=== PATIENT | female | born 1980 | race Caucasian/White ===

== ENCOUNTER 2018-06-24 17:10 | Emergency (ER) | payer SELFPAY ==
[~2018-06-24] VITALS: Ht 162.6 cm; Wt 89.4 kg
[~2018-06-24 17:10] MED LIST: AC500T; AGM875T PO; CEPH250T; CEPH500C; CYCL10TA9 PO; FLT05NA16 NSEACH; GBPN100C PO; HYDR-757 PO; NAPR-243 PO; OMEP20CA6; PRD20T PO; PREN1TAB39; PSEU120T53; SUMA50TA2 PO
--- OUTSIDE RECORDS SUMMARY | 2018-06-24 17:16 | XMS REPORT | Continuity of Care Document ---
Author Author [facility] Organization [facility] Address Unknown Phone Unavailable Care Team Providers Care Power Grader Operator Name Role Phone HERNAN LIZAMA MD PP Insurance Providers Payer Name Policy Number Subscriber Name Relationship [facility] [place] [id number] Cassia Goodman 01 Self / Same As Patient Advance Directives Directive Response Recorded Date Advance Directives N 08/12/13 2:20pm Health Care Power of Couturiere N 08/12/13 2:20pm Organ Donor N 08/12/13 2:20pm Problems No Known Problems or Medical conditions. Family History History Response Recorded Date/Time Hx Family Cancer N 07/02/09 8:50pm Hx Family Cardiac Disorders Y 07/02/09 8: 50pm Hx Family Hypertension Y 07/02/09 8:50pm Social History History Response Recorded Date/Time Alcohol Use Denies Use 08/12/13 2:20pm Recreational Drug Use N 08/12/13 2:20pm Allergies, Adverse Reactions, Alerts Allergen Type Severity Reaction Last Updated No Known Drug Allergies 05/12/09 Medications Medication Dose Units Route Sig Qty Days Prednisone 40 Mg PO DAILY 5 Gabapentin (Neurontin) 100 Mg PO BID Cyclobenzaprine HCl (Cyclobenzaprine Hcl) 1 Each PO BID Naproxen (Naprosyn) 1 Each PO BID Hydrocodone Bit/Acetaminophen (Mathews 5-325 Tablet) 1 Each PO Sumatriptan Succinate 50 Mg PO Q4H 3 Response Recorded Date/Time Status not known Unknown Results No Known Relevant Diagnostic Tests, Laboratory Data and/or Discharge Summary. Procedures Procedure Code Date LOW CERVICAL 74.1 07/02/09 INSTRUMENT DELIVERY NOS 72.9 07/02/09 Encounters Encounter Location Date/Time Departed Emergency Room [facility] 1:54pm Discharged Inpatient [facility] 12: 00am
--- OUTSIDE RECORDS SUMMARY | 2018-06-24 17:16 | XMS REPORT ---
Author Author KRISTA PERALTA Organization [facility] [place] Address [address] [place] [address] Care Team Providers Care Geographic Information Systems Manager Name Role Phone KRISTA PERALTA Unavailable PROBLEMS Type Condition ICD9-CM Code HGZ99-QT Code Onset Dates Condition Status SNOMED Code Problem Moderate episode of recurrent major depressive disorder F33.1 Active [id number] ALLERGIES Substance Reaction Event Type Date Status Viibryd 10 Mg Tablet increased anxiety Non Drug Allergy Dec, Active ENCOUNTERS Encounter Location Date Diagnosis [facility] [place] [id number] [place] [address]89- 7632 Dec, [facility] [place] [address] [address] Dec, Acute nasopharyngitis J00 and Moderate episode of recurrent major depressive disorder F33.1 [facility] [place] [id number] [place] [address]26- 6498 Jun, [facility] [place] [id number] [place] [address] 35226- 8104 May, [facility] [place] [id number] [place] [address] 14029- 1585 May, [facility] [place] [id number] [place] [address] 35656- 0767 Apr, [facility] [place] [id number] [place] [address]- 0945 Apr, [facility] [place] [id number] [place] [address] 6[address]- 9107 Apr, [facility] [id number] [place] [id number] Apr, Dental examination V72.2 [facility] [address] [id number] [place] [address] 7607 Mar, [facility] [address] [id number] [place] [id number] Mar, Dental examination V72.2 [facility] [address] [id number] [place] [address] 978[address] Mar, [facility] [address] [id number] [place] [address]- 4838 Mar, [facility] [address] [id number] [place] [address]- 5674 Mar, High risk medication use V58.69 [facility] [address] [id number] [place] [address]- 6211 February, [facility] [address] [id number] [address] February, [facility] [address] [id number] [address] Jan, [facility] [address] [id number] [place] [address]- 6009 Jan, [facility] [address] [id number] [place] [address]- 1745 Dec, [facility] [address] [id number] [address] 7462 Dec, [facility] [address] [id number] [address]- 3967 Dec, [facility] [address] [id number] [place] [address]- 9606 Dec, [facility] [address] [id number] [place] [address]- 5651 Nov, [facility] [address] [id number] [place] [address]- 3569 Nov, [facility] [place] [facility] [address] [id number] [place] [address]- 9168 Nov, 2014 [facility] [place] [facility] [address] [id number] [place] [address]- 2333 Nov, 2014 [facility] [place] [facility] [address] [id number] [place] [address]- 1696 Nov, 2014 [facility] [place] [facility] [address] [id number] [place] [address]- 1255 Nov, 2014 [facility] [place] [facility] [address] [id number] [place] [address]- 0392 Nov, 2014 [facility] [place] [facility] [address] [id number] [place] [address]- 4362 Nov, 2014 [facility] [place] [facility] [address] [id number] [place] [address]- 6283 Nov, 2014 [facility] [place] [facility] [address] [id number] [place] [address]- 8490 Nov, [facility] [place] [facility] [address] [id number] [place] [address]- 7039 Oct, [facility] [place] [facility] [address] [id number] [place] [address]- 7456 Oct, [facility] [place] [facility] [address] [id number] [place] [address]- 1830 Oct, [facility] [place] [facility] [address] [id number] [place] [address]- 1460 Oct, [facility] [place] [facility] [address] [id number] [place] [address]- 8122 Sep, [facility] [place] [facility] [address] [id number] [place] [address]- 2700 Sep, [facility] [place] [facility] [address] [id number] [id number] [address] Sep, [facility] [place] [facility] [address] [id number] [address]- 4172 Sep, [facility] [place] [facility] [address] [id number] [place] [address]- 7515 Sep, [facility] [place] [facility] [address] [id number] [place] 9470 Sep, [facility] [place] [facility] [address] [id number] [place] [address]- 6241 Sep, [facility] [place] [facility] [address] [id number] [place] [address]- 9963 Sep, [facility] [place] [facility] [address] [id number] [place] [address]- 8256 Aug, [facility] [place] [facility] [address] [id number] [place] [address]- 1928 Aug, [facility] [place] [facility] [address] [id number] [place] [address]- 9320 Aug, [facility] [place] [facility] [address] [id number] [place] [address]- 2611 Aug, [facility] [place] [facility] [address] [id number] [place] [address]- 6191 Aug, [facility] [place] [facility] [address] [id number] [place] [address]- 2649 Aug, [facility] [place] [facility] [address] [id number] [address]- 6999 Jul, [facility] [place] [facility] [address] [id number] [address]- 6576 Jul, [facility] [place] [facility] [address] [id number] [address]- 4845 Jul, [facility] [place] [facility] [address] [id number] [place] [address]- 4762 Jul, [facility] [place] [facility] [address] [id number] [place] [address]- 2134 Jul, [facility] [place] [facility] [address] [id number] [place] [address]- 9936 Jul, [facility] [place] [facility] [address] [id number] [place] [address]- 7793 Jul, [facility] [place] [facility] [address] [id number] [place] [address]- 0476 Jul, [facility] [place] [facility] [address] [id number] [place] [address]- 2686 Jun, [facility] [place] [facility] [address] [id number] [place] [address]- 9602 Jun, 2013 [facility] [place] [facility] [address] [id number] [place] [address]- 5368 Jun, [facility] [place] [facility] [address] [id number] [place] [address]- 7530 Jun, [facility] [place] [facility] [address] [id number] [place] [address]- 9846 Jun, [facility] [place] [facility] [address] [id number] [place] [address]- 9582 Jun, [facility] [place] [facility] [address] [id number] [place] [address]- 3865 May, [facility] [place] [facility] [address] [id number] [place] [address]- 9821 May, [facility] [place] [facility] [address] [id number] [place] [address]- 0864 May, [facility] [place] [facility] [address] [id number] [place] [address]- 5072 May, [facility] [place] [facility] [address] [id number] [place] [address]- 8474 Apr, [facility] [place] [facility] [address] [id number] [place] [address]- 7011 Apr, [facility] [place] [facility] [address] [id number] [place] [address]- 1677 Apr, [facility] [place] [facility] [address] [id number] [place] [address]- 6266 Apr, [facility] [place] [facility] [address] [id number] [place] [address]- 4574 Apr, [facility] [place] [facility] [address] [id number] [place] [address]- 0723 Mar, [facility] [place] [facility] [address] [id number] [place] [address]- 5964 Mar, [facility] [place] [facility] [address] [id number] [place] [address]- 9485 Mar, [facility] [place] [facility] [address] [id number] [place] [address]- 9683 Mar, [facility] [place] [facility] [address] [id number] [place] [address]- 4395 Mar, [facility] [place] [facility] [address] [id number] [place] [address]- 1123 Mar, [facility] [place] [facility] [address] [id number] [place] [address]- 0397 Mar, [facility] [place] [facility] [address] [id number] [place] [address]- 5177 Mar, [facility] [place] [facility] [address] [id number] [place] [address]- 6767 February, [facility] [place] [facility] [address] [id number] [place] [address]- 2204 February, [facility] [place] [facility] [address] [id number] [place] [address]- 7191 February, [facility] [place] [facility] [address] [id number] [place] [address]- 4689 February, [facility] [place] [facility] [address] [id number] [place] [address]- 8624 February, [facility] [place] [facility] [address] [id number] [place] [address]- 5163 February, [facility] [place] [facility] [address] [id number] [place] [address]- 8668 February, [facility] [place] [facility] [address] [id number] [place] [address]- 6073 Jan, [facility] [place] [facility] [address] [id number] [place] [address]- 3414 Jan, [facility] [place] [facility] [address] [id number] [place] [address]- 7325 Jan, [facility] [place] [facility] [address] [id number] [place] [address]- 6259 Jan, [facility] [place] [facility] [address] [id number] [place] [address]- 2407 Jan, [facility] [place] [facility] [address] [id number] [place] [address]- 2143 Jan, [facility] [place] [facility] [address] [id number] [place] [address]- 8126 Dec, [facility] [place] [facility] [address] [id number] [place] [address]- 2380 Dec, [facility] [place] [facility] [address] [id number] [place] [address]- 4156 Dec, [facility] [place] [facility] [address] [id number] [place] [address]- 0818 Dec, [facility] [place] [facility] [address] [id number] [place] [address]- 8757 Dec, [facility] [place] [facility] [address] [id number] [place] [address]- 1257 Dec, [facility] [place] [facility] [address] [id number] [place] [address]- 3695 Dec, [facility] [place] [facility] [address] [id number] [place] [address]- 0644 Dec, [facility] [place] [facility] [address] [id number] [place] [address]- 0230 Dec, [facility] [place] [facility] [address] [id number] [place] [address]- 5736 Dec, [facility] [place] [facility] [address] [id number] [place] [address]- 8556 Dec, [facility] [place] [facility] [address] [id number] [place] [address]- 5361 Dec, [facility] [place] [facility] [address] [id number] [place] [address]- 2570 Dec, [facility] [place] [facility] [address] [id number] [place] [address]- 8627 Dec, [facility] [place] [facility] [address] [id number] [place] [address]- 0133 Dec, [facility] [place] [facility] [address] [id number] [place] [address]- 8247 Dec, [facility] [place] [facility] [address] [id number] [place] [address]- 2655 Nov, [facility] [place] [facility] [address] [id number] [place] [address]- 1148 Nov, [facility] [place] [facility] [address] [id number] [place] [address]- 5317 Nov, [facility] [place] [facility] [address] [id number] [place] [address]- 6352 Nov, [facility] [place] [facility] [address] [id number] [place] [address]- 7359 Nov, [facility] [place] [facility] [address] [id number] [place] [address]- 7409 Nov, [facility] [place] [facility] [address] [id number] [place] [address]- 2614 Nov, [facility] [place] [facility] [address] [id number] [place] [address]- 9901 Nov, [facility] [address] [id number] [place] [address]- 5350 Nov, [facility] [place] [facility] [address] [id number] [place] [address]- 8882 Nov, [facility] [address] [id number] [place] [address]- 8953 Sep, [facility] [place] [facility] [address] [id number] [place] [address]- 4749 Sep, [facility] [place] [facility] [address] [id number] [place] [address]- 3222 Aug, [facility] [place] [facility] [address] [id number] [place] [address]- 7568 Aug, [facility] [address] [id number] [place] [address]- 7121 Aug, [facility] [place] [facility] [address] [id number] [place] [address]- 8337 Aug, [facility] [place] [facility] [address] [id number] [place] [address]- 5437 Aug, [facility] [place] [facility] [address] [id number] [place] [address]- 0805 Aug, [facility] [place] [facility] [address] [id number] [place] [address]- 2144 Aug, [facility] [place] [facility] [address] [id number] [address]- 8760 Aug, [facility] [place] [facility] [address] [id number] [place] [address]- 1015 Aug, [facility] [place] [facility] [address] [id number] [address]- 4370 Aug, [facility] [place] [facility] [address] [id number] [address]- 3725 Jul, [facility] [place] [facility] [address] [id number] [place] [address]- 0968 Jul, [facility] [place] [facility] [address] [id number] [place] [address]- 9768 Jul, [facility] [place] [facility] [address] [id number] [place] [address]- 1349 Jul, [facility] [place] [facility] [address] [id number] [place] [address]- 1255 Jun, [facility] [place] [facility] [address] [id number] [place] [address]- 8766 Jun, [facility] [place] [facility] [address] [id number] [place] [address]- 5316 May, [facility] [place] [facility] [address] [id number] [place] [address]- 9880 May, [facility] [place] [facility] [address] [id number] [place] [address]- 1081 May, [facility] [place] [facility] [address] [id number] [place] [address]- 6764 May, [facility] [place] [facility] [address] [id number] [place] [address]- 6935 Apr, [facility] [place] [facility] [address] [id number] [place] [address]- 5542 Apr, [facility] [place] [facility] [address] [id number] [place] [address]- 3253 Apr, [facility] [place] [facility] [address] [id number] [place] [address]- 4308 Apr, [facility] [place] [facility] [address] [id number] [place] [address]- 2519 Mar, [facility] [place] [facility] [address] [id number] [place] [address]- 8471 Mar, [facility] [place] [facility] [address] [id number] [place] [address]- 9189 Mar, [facility] [address] [id number] [place] [address]- 8306 February, [facility] [address] [id number] [place] [address]- 7836 February, [facility] [address] [id number] [place] [address]- 2816 February, [facility] [address] [id number] [place] [address]- 2216 February, [facility] [address] [id number] [place] [address]- 1929 Jan, [facility] [address] [id number] [place] [address]- 9736 Jan, [facility] [address] [id number] [place] [address]- 1868 Dec, [facility] [address] [id number] [place] [address]- 1833 Dec, [facility] [address] [id number] [place] [address]- 6955 Nov, [facility] [address] [id number] [place] [address]- 3420 Oct, [facility] [address] [id number] [place] [address]- 8993 Oct, [facility] [place] [facility] [address] [id number] [place] [address]- 9500 Oct, [facility] [place] [facility] [address] [id number] [place] [address]- 6040 Sep, [facility] [place] [facility] [address] [id number] [place] [address]- 8641 Sep, [facility] [place] [facility] [address] [id number] [place] [address]- 6847 Sep, [facility] [place] [facility] [address] [id number] [place] [address]- 0483 14 Sep, 2012 [facility] [place] [facility] [address] [id number] [place] [address]- 5684 13 Sep, 2012 [facility] [place] [facility] [address] [id number] [place] [address]- 7156 13 Sep, 2012 [facility] [place] [facility] [address] [id number] [place] [address]- 6396 06 Sep, 2012 [facility] [place] [facility] [address] [id number] [place] [address]- 6838 06 Sep, 2012 [facility] [place] [facility] [address] [id number] [place] [address]- 9722 Sep, [facility] [place] [facility] [address] [id number] [place] [address] Sep, [facility] [place] [facility] [address] [id number] [place] [address] Aug, [facility] [place] [facility] [address] [id number] [place] [address] Aug, [facility] [place] [facility] [address] [id number] [place] [address] Aug, [facility] [place] [facility] [address] [id number] [place] [address] Aug, [facility] [place] [facility] [address] [id number] [place] [address] 15 Jul, 2012 [facility] [place] [facility] [address] [id number] [place] [address] 15 Jul, 2012 [facility] [place] [facility] [address] [id number] [place] [address] Jul, [facility] [place] [facility] [address] [id number] [place] [address] Jul, [facility] [place] [facility] [address] [id number] [place] [address] Jul, [facility] [place] [address] [id number] [place] [address] Jun, [facility] [place] [address] [id number] [address] Jun, [facility] [place] [address] [id number] [address] May, IMMUNIZATIONS No Known Immunizations SOCIAL HISTORY Never Assessed REASON FOR VISIT Congestion- Cough started couple days ago- pt just got out of [facility] states she is 8 days clean, would like to get set up with our drug and alcohol treatment here - Mahesh Herbert RN, PHQ2, AUDIT C PLAN OF CARE Activity Details Follow Up 4 Weeks Reason: VITAL SIGNS Height 66 in 2017-12-27 Weight 239 lbs 2017-12-27 Temperature 98.9 degrees Fahrenheit 2017-12-27 Heart Rate 88 bpm 2017-12-27 Respiratory Rate 18 2017-12-27 BMI 38.57 kg/m2 2017-12-27 Blood pressure systolic 148 mmHg 2017-12-27 Blood pressure diastolic 78 mmHg 2017-12-27 MEDICATIONS Medication Instructions Dosage Frequency Start Date End Date Duration Status Zoloft 100 MG Orally Once a day 1 tablet 24h Dec, 30 day(s) Active SudoGest 60 mg Orally every 6 hrs 1 tablet as needed 6h Dec, 03 days Active PredniSONE 50 mg Orally Once a day 1 tablet 24h Dec, Dec, 05 days Active RESULTS No Results PROCEDURES No Known procedures INSTRUCTIONS MEDICATIONS ADMINISTERED No Known Medications MEDICAL (GENERAL) HISTORY Type Description Date Medical History orthopedic disorder-hx of bulgin disc Medical History herpes simplex type 2-genital herpes dx 1996-no outbreak since Surgical History tonsillectomy and adenoidectomy Surgical History tubal ligation Surgical History section x 2 Hospitalization History had post eclampsia 1 week afer delivery. Admitted to ICU after having 2 seizures. 2008
--- OUTSIDE RECORDS SUMMARY | 2018-06-24 17:16 | XMS REPORT ---
Author Author TOVA MARLEY Organization [employer] Address Unknown Phone Unavailable Care Team Providers Care Truck Jumper Name Role Phone TOVA MARLEY CP Unavailable Allergies No Known Allergies Problems Problem Type Condition ICD-9 Code Onset Dates Condition Status Problem Unspecified breast screening V76.10 Active Problem Routine gynecological examination V72.31 Active Problem Counseling on substance use and abuse V65.42 Active Problem Osteoarthrosis, unspecified whether generalized or localized, unspecified site 715.90 Active Problem Displacement of intervertebral disc, site unspecified, without myelopathy 722.2 Active Problem Lumbar sprain and strain 847.2 Active Problem Other chronic pain 338.29 Active Problem Encounter for long-term (current) use of other medications V58.69 Active Problem Major depressive disorder, recurrent episode, moderate 296.32 Active Problem Generalized anxiety disorder 300.02 Active Problem Screening examination for venereal disease V74.5 Active Problem Special screening examination, human papillomavirus [HPV] V73.81 Active Problem Screening for malignant neoplasm of the cervix V76.2 Active Medications No Known Medications Results No Known Results Summary Purpose [employer] Submission
--- OUTSIDE RECORDS SUMMARY | 2018-06-24 17:16 | XMS REPORT ---
Author Author EMIR RIOS Organization [employer] Address Unknown Phone Unavailable Care Team Providers Care Rig Builder Helper Name Role Phone EMIR RIOS CP Unavailable Allergies No Known Allergies Problems [...] Active Problem Generalized anxiety disorder 300.02 Active Assessment Dental examination V72.2 Active Problem Screening examination for venereal disease V74.5 Active Problem Special screening examination, human papillomavirus [HPV] V73.81 Active Problem Screening for malignant neoplasm of the cervix V76.2 Active Medications No Known Medications Procedures Procedure Coding System Code Date INTRAORL-PERIAPICAL 1 FILM 32454 CPT-4 D0220 April 16, 2015 BITEWING - SINGLE FILM CPT-4 D0270 April 16, 2015 LTD ORAL EVALUATION - PROBLEM FOCUS CPT-4 D0140 April 16, 2015 Results No Known Results Summary Purpose [employer] Submission
--- OUTSIDE RECORDS SUMMARY | 2018-06-24 17:16 | XMS REPORT ---
Author Author KRISTA PERALTA Organization [facility] Address [address] [place] [address] Care Team Providers Care Director Of Financial Reporting Name Role Phone KRISTA PERALTA Unavailable PROBLEMS Type Condition ICD9-CM Code [id number] Code Onset Dates Condition Status SNOMED Code Problem Moderate episode of recurrent major depressive disorder F33.1 Active [id number] ALLERGIES No Information ENCOUNTERS Encounter Location Date Diagnosis [facility] [id number] [place] [address] 20949- 2561 Dec, [facility] [id number] [place] [address] 69408- 2427 Dec, Acute nasopharyngitis J00 and Moderate episode of recurrent major depressive disorder F33.1 [facility] [id number] [place] [address] 25923- 1428 Jun, [facility] [id number] [place] [address] 62426- 4090 May, [facility] [id number] [place] [address] 22406- 6922 May, [facility] [id number] [place] [address] 51449- 7147 Apr, [facility] [id number] [place] [address] 39823- 7188 Apr, [facility] [id number] [place] [address] 27440- 7396 Apr, [facility] [id number] [place] [address] [id number] Apr, Dental examination V72.2 [facility] [id number] [place] [address] 69839- 2546 Mar, [facility] [address] [id number] [id number] Mar, Dental examination V72.2 [facility] [address] [id number], [place] [address] 4209 Mar, [facility] [id number] [address] 5384 Mar, [facility] [id number] [address] 9377 Mar, High risk medication use V58.69 [facility] [id number] [place] [address] 64470- 2424 February, [facility] [id number] [address]- 6676 February, [facility] [id number] [address]- 4322 Jan, [facility] [id number] [address]- 7846 Jan, [facility] [id number] [address]- 1767 Dec, [facility] [id number] [address]- 8840 Dec, [facility] [id number] [address]- 3744 Dec, [facility] [id number] 9669 Dec, [facility] [id number] 5893 Nov, [facility] [id number] 5436 Nov, [facility] [id number] [address]505 Nov, 2014 [facility] [place] [facility] [address] [id number] [place] [address]- 8264 Nov, 2014 [facility] [place] [facility] [address] [id number] [place] [address]- 8156 Nov, [facility] [place] [facility] [address] [id number] [place] [address]- 4043 Nov, 2014 [facility] [place] [facility] [address] [id number] [place] [address]- 3537 Nov, 2014 [facility] [place] [facility] [address] [id number] [place] [address]- 0032 Nov, 2014 [facility] [place] [facility] [address] [id number] [place] [address]- 8812 Nov, [facility] [place] [facility] [address] [id number] [place] [address]- 5870 Nov, [facility] [place] [facility] [address] [id number] [place] [address]- 1289 Oct, [facility] [place] [facility] [address] [id number] [place] [address]- 7578 Oct, [facility] [place] [facility] [address] [facility] [id number] [place] [address]- 6572 Oct, [facility] [place] [facility] [address] [id number] [place] [address]- 8911 Oct, [facility] [place] [facility] [address] [id number] [place] [address]- 0034 Sep, [facility] [place] [facility] [address] [id number] [place] [address]- 3245 Sep, [facility] [place] [facility] [address] [id number] [place] [address]- 0477 Sep, [facility] [place] [facility] [address] [id number] [place] [address]- 1120 Sep, [facility] [place] [facility] [address] [id number] [place] [address]- 0941 Sep, [facility] [place] [facility] [address] [id number] [place] [address]- 7528 Sep, [facility] [place] [facility] [address] [id number] [place] 1703 Sep, [facility] [place] [facility] [address] [id number] [place] 8390 Sep, [facility] [place] [facility] [address] [id number] [place] [address]- 6870 Aug, [facility] [place] [facility] [address] [id number] [place] [address]- 3757 Aug, [facility] [place] [facility] [address] [id number] [place] [address]- 7080 Aug, [facility] [place] [facility] [address] [id number] [place] [address]- 9586 Aug, [facility] [place] [facility] [address] [id number] [place] [address]- 5661 Aug, [facility] [place] [facility] [address] [id number] [place] [address]- 0812 Aug, [facility] [place] [facility] [address] [id number] [place] [address]- 9234 Jul, [facility] [place] [facility] [address] [id number] [place] [address]- 3480 Jul, [facility] [place] [facility] [address] [id number] [place] [address]- 8318 Jul, [facility] [place] [facility] [address] [id number] [place] [address]- 5583 Jul, [facility] [place] [facility] [address] [id number] [place] 1222 Jul, [facility] [place] [facility] [address] [id number] [place] [address]- 5294 Jul, [facility] [place] [facility] [address] [id number] [place] [address]- 0133 Jul, [facility] [place] [facility] [address] [id number] [place] [address]- 9737 Jul, [facility] [place] [facility] [address] [id number] [place] [address]- 5513 Jun, [facility] [place] [facility] [address] [id number] [place] [address]- 7736 Jun, [facility] [place] [facility] [address] [id number] [place] [address]- 1302 Jun, [facility] [place] [facility] [address] [id number] [place] [address]- 8984 Jun, [facility] [place] [facility] [address] [id number] [place] [address]- 0447 Jun, [facility] [place] [facility] [address] [id number] [place] [address]- 4570 Jun, [facility] [place] [facility] [address] [id number] [place] [address]- 9334 May, [facility] [place] [facility] [address] [id number] [place] [address]- 3811 May, [facility] [place] [facility] [address] [id number] [place] [address]- 6151 May, [facility] [place] [facility] [address] [id number], [place] [address]- 7164 May, [facility] [place] [facility] [address] [id number] [place] [address]- 8412 Apr, [facility] [place] [facility] [address] [id number] [place] [address]- 1807 Apr, [facility] [place] [facility] [address] [id number] [place] [address]- 5969 Apr, [facility] [place] [facility] [address] [id number] [place] [address]- 3164 Apr, [facility] [place] [facility] [address] [id number] [place] [address]- 6590 Apr, [facility] [place] [facility] [address] [id number] [place] [address]- 3961 Mar, [facility] [place] [facility] [address] [id number] [place] [address]- 9413 Mar, [facility] [place] [facility] [address] [id number] [place] [address]- 4151 Mar, [facility] [place] [facility] [address] [id number] [place] [address]- 5750 Mar, [facility] [place] [facility] [address] [id number] [place] [address]- 9768 Mar, [facility] [place] [facility] [address] [id number] [place] [address]- 1739 Mar, [facility] [place] [facility] [address] [id number] [place] [address]- 1942 Mar, [facility] [place] [facility] [address] [id number] [place] [address]- 3085 Mar, [facility] [place] [facility] [address] [id number] [place] [address]- 3692 February, [facility] [place] [facility] [address] [id number] [place] [address]- 6295 February, [facility] [place] [facility] [address] [id number] [place] [address]- 0281 February, [facility] [place] [facility] [address] [id number] [place] [address]- 7410 February, [facility] [place] [facility] [address] [id number] [place] [address]- 1088 February, [facility] [place] [facility] [address] [id number] [place] [address]- 1398 February, [facility] [place] [facility] [address] [id number] [place] [address]- 4075 February, [facility] [place] [facility] [address] [id number] [place] [address]- 8019 Jan, [facility] [place] [facility] [address] [id number] [place] [address]- 5921 Jan, [facility] [place] [facility] [address] [id number] [place] [address]- 4425 Jan, [facility] [place] [facility] [address] [id number] [place] [address]- 6899 Jan, [facility] [place] [facility] [address] [id number] [place] [address]- 2455 Jan, [facility] [place] [facility] [address] [id number] [place] [address]- 6882 Jan, [facility] [place] [facility] [address] [id number] [place] [address]- 7611 Dec, [facility] [place] [facility] [address] [id number] [place] [address]- 0157 Dec, [facility] [place] [facility] [address] [id number] [place] [address]- 5344 Dec, [facility] [place] [facility] [address] [id number] [place] [address]- 5499 Dec, [facility] [place] [facility] [address] [id number] [place] [address]- 9159 Dec, [facility] [place] [facility] [address] [id number] [place] [address]- 2108 Dec, [facility] [place] [facility] [address] [id number] [place] [address]- 0374 Dec, [facility] [place] [facility] [address] [id number] [place] [address]- 6610 Dec, [facility] [place] [facility] [address] [id number] [place] [address]- 0541 Dec, [facility] [place] [facility] [address] [id number] [place] [address]- 5806 Dec, [facility] [place] [facility] [address] [id number] [place] [address]- 3050 Dec, [facility] [place] [facility] [address] [facility] [id number] [place] [address]- 1070 Dec, [facility] [place] [facility] [address] [id number] [place] [address]- 7266 Dec, [facility] [place] [facility] [address] [id number] [place] [address]- 5806 Dec, [facility] [place] [facility] [address] [facility] [id number] [place] [address]- 3153 Dec, [facility] [place] [facility] [address] [facility] [id number] [place] [address]- 4355 Dec, [facility] [place] [facility] [address] [id number] [place] [address]- 3174 Nov, [facility] [place] [facility] [address] [facility] [id number] [place] [address]- 0154 Nov, [facility] [place] [facility] [address] [facility] [id number] [place] [address]- 1356 Nov, [facility] [place] [facility] [address] [facility] [id number], [place] [address]- 8901 Nov, [facility] [place] [facility] [address] [facility] [id number], [place] [address]- 7789 Nov, [facility] [place] [facility] [address] [facility] [id number] [place] [address]- 8850 Nov, [facility] [place] [facility] [address] [facility] [id number], [place] [address]- 4922 Nov, [facility] [place] [facility] [address] [facility] [id number], [place] [address]- 8261 Nov, [facility] [place] [facility] [address] [id number] [place] [address]- 5576 Nov, [facility] [address] [id number] [place] [address]- 7411 Nov, [facility] [place] [facility] [address] [id number] [place] [address]- 7774 Sep, [facility] [place] [facility] [address] [id number] [place] [address]- 3351 Sep, [facility] [address] [id number] [place] [address]- 7253 Aug, [facility] [place] [facility] [address] [id number] [place] [address]- 6922 Aug, [facility] [address] [facility] [id number] [place] [address]- 0121 Aug, [facility] [address] [id number] [place] [address]- 2620 Aug, [facility] [address] [id number] [place] [address]- 6896 Aug, [facility] [address] [id number] [place] [address]- 5997 Aug, [facility] [place] [facility] [address] [facility] [id number] [place] [address]- 8977 Aug, [facility] [place] [facility] [address] [id number], [place] [address]- 8183 Aug, [facility] [place] [facility] [address] [id number] [place] [address]- 7826 Aug, [facility] [place] [facility] [address] [id number] [place] [address]- 1234 Aug, [facility] [place] [facility] [address] [id number] [place] [address]- 3227 Jul, [facility] [place] [facility] [address] [id number], [place] [address]- 2546 Jul, [facility] [place] [facility] [address] [id number] [place] [address]- 6715 Jul, [facility] [place] [facility] [address] [id number] [place] [address]- 6135 Jul, [facility] [place] [facility] [address] [id number] [place] [address]- 1043 Jun, [facility] [place] [facility] [address] [id number] [place] [address]- 6174 Jun, [facility] [place] [facility] [address] [id number] [place] 5136 May, [facility] [place] [facility] [address] [id number] [place] [address]- 2103 May, [facility] [place] [facility] [address] [id number] [place] [address]- 3719 May, [facility] [place] [facility] [address] [id number] [place] [address]- 2720 May, [facility] [place] [facility] [address] [id number] [place] 5388 Apr, [facility] [place] [facility] [address] [id number] [place] [address]- 9455 Apr, [facility] [place] [facility] [address] [id number] [place] [address]- 0872 Apr, [facility] [place] [facility] [address] [id number] [place] [address]- 1570 Apr, [facility] [place] [facility] [address] [id number] [place] [address]- 0422 Mar, [facility] [place] [facility] [address] [id number] [place] [address]- 9499 Mar, [facility] [place] [facility] [address] [id number] [place] [address]- 5106 Mar, [facility] [place] [facility] [address] [id number] [place] [address]- 7056 February, [facility] [address] [id number] [place] [address]- 8536 February, [facility] [address] [id number] [place] [address]- 2546 February, [facility] [address] [id number] [place] [address]- 1616 February, [facility] [address] [id number] [place] [address]- 4325 Jan, [facility] [address] [id number] [place] [address]- 5306 Jan, [facility] [address] [id number] [place] [address]- 5526 Dec, [facility] [address] [id number] [place] [address]- 0586 Dec, [facility] [address] [id number] [place] [address]- 0419 Nov, [facility] [address] [id number] [place] [address]- 7349 Oct, [facility] [address] [id number] [place] [address]- 5656 Oct, [facility] [address] [id number] [place] [address]- 2546 Oct, [facility] [address] [id number] [place] [address]- 9399 Sep, [facility] [address] [id number] [place] [address]- 2626 Sep, [facility] [address] [id number] [place] [address]- 2546 Sep, [facility] [address] [id number] [place] [address]- 8063 Sep, [facility] [place] [facility] [address] [id number] [place] [address]- 4971 Sep, [facility] [place] [facility] [address] [id number] [place] [address]- 0065 Sep, [facility] [place] [facility] [address] [id number] [place] [address]- 8530 Sep, [facility] [place] [facility] [address] [id number] [place] [address]- 9244 Sep, [facility] [place] [facility] [address] [id number] [place] 4231 Sep, [facility] [place] [facility] [address] [id number] [place] [address]- 6995 Sep, [facility] [place] [facility] [address] [id number] [place] [address]- 6217 Aug, [facility] [place] [facility] [address] [id number] [place] [address]- 6959 Aug, [facility] [place] [facility] [address] [id number] [place] [address]- 9183 Aug, [facility] [place] [facility] [address] [facility] [id number], [place] [address]- 5558 Aug, [facility] [place] [facility] [address] [id number], [place] [address]- 8685 Jul, [facility] [place] [facility] [address] [id number], [place] [address] Jul, [facility] [place] [facility] [address] [id number] [place] [address] Jul, [facility] [place] [facility] [address] [id number], [place] [address] Jul, [facility] [place] [facility] [address] [facility] [id number], [place] [address] Jul, [facility] [place] [facility] [address] [id number] [place] [address] Jun, [facility] [place] [address] [facility] [id number] [place] [address] Jun, [facility] [place] [address] [facility] [id number], [place] [address] May, IMMUNIZATIONS No Known Immunizations SOCIAL HISTORY Never Assessed REASON FOR VISIT VMB not set up PLAN OF CARE VITAL SIGNS MEDICATIONS Unknown Medications RESULTS No Results PROCEDURES No Known procedures [...]
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
[2018-06-24] MEDS ORDERED: IBUPROFEN 800 MG (MOTRIN) TAB PO ONE (17:45)
[2018-06-24 18:30] VITALS: BP 137/98
== END 2018-06-24 18:30 | disposition home or self-care (01) ==
LOC: EDUNIT# 17:10 → ER 17:11
DX: S02.5XXA Fracture of tooth (traumatic), initial encounter for closed fracture (principal); R22.0 Localized swelling, mass and lump, head; F17.200 Nicotine dependence, unspecified, uncomplicated; R40.2143 Coma scale, eyes open, spontaneous, at hospital admission; R40.2253 Coma scale, best verbal response, oriented, at hospital admission; R40.2363 Coma scale, best motor response, obeys commands, at hospital admission; Y04.0XXA Assault by unarmed brawl or fight, initial encounter
CPT/HCPCS: 99283